=== PATIENT | female | born 2000 | race Caucasian/White ===

== ENCOUNTER 2023-09-23 15:30 | Emergency (ER) | payer MEDICAID | END 2023-09-23 17:16 | disposition home or self-care (01) | LOC: JD.ED 15:30 | DX: S86.891A Other injury of other muscle(s) and tendon(s) at lower leg level, right leg, initial encounter (principal); X50.0XXA Overexertion from strenuous movement or load, initial encounter; Y93.02 Activity, running | CPT/HCPCS: 73590-26-RT; 73590-RT; 73700-26-RT; 73700-RT; 99282; 99284 ==